=== PATIENT | female | born 1965 | race Caucasian/White ===

== ENCOUNTER 2017-07-19 15:05 | Emergency (ER) | payer SELFPAY ==
[2017-07-19 15:17] VITALS: BP 145/93; PULSE 91; RESP 20; TEMP 36.8; O2SAT 100; BMI 33.5
--- NOTE | 2017-07-19 15:25 | ED_ITS ---
HPI - Extremity Problem <Joyce Quiroz PA-C - Last Filed: 07/19/17 18:09> General Chief complaint: Extremity Problem,Nontraumatic Stated complaint: 'inside of legs are dark and purple' Time Seen by Provider: 07/19/17 15:09 Source: patient and family Mode of arrival: ambulatory Limitations: no limitations History of Present Illness HPI Narrative: This 52-year-old female comes in due to concern about discoloration on her inner thighs today, they look purpleish. She is concerned after looking on the Internet that this could be secondary to PAD. She noticed this coincidentally while showering today. She denies any trauma or new pain in that area but states that she has varicose veins that have been enlarging somewhat lately and are moderately painful, especially at the end of the day, and she states that her legs are feeling ?heavy?. She states that mostly she tolerates the pain and goes about her activities. She denies any new weakness or paresthesia. She can get a little bit of swelling in her feet noted by her but she has not noted this. She denies any new nausea, abdominal pain, chest pain, or dyspnea, fever, other rashes or lesions or known exposures. She states that she has chronic generalized pain but that is unchanged recently. Her notes that she has had a considerable amount of stress and has been quite anxious. Related Data Home Medications Medication Instructions Recorded Confirmed alprazolam 0.5 mg PO PRN 07/19/17 hydrochlorothiazide 25 mg PO DAILY 07/19/17 07/19/17 metoprolol succinate 100 mg PO DAILY 07/19/17 07/19/17 Allergies Allergy/AdvReac Type Severity Reaction Status Date / Time No Known Drug Allergies Allergy Verified 07/19/17 15:21 Review of Systems <Joyce Quiroz PA-C - Last Filed: 07/19/17 18:09> Review of Systems All systems reviewed & are unremarkable except as noted in HPI and below Exam <Joyce Quiroz PA-C - Last Filed: 07/19/17 18:09> Initial Vital Signs Initial Vital Signs: Vital Signs Temperature 98.3 F 07/19/17 15:17 Pulse Rate 91 H 07/19/17 15:17 Respiratory Rate 20 07/19/17 15:17 Blood Pressure 145/93 H 07/19/17 15:17 Pulse Oximetry 100 07/19/17 15:17 GENERAL APPEARANCE: Patient sitting comfortably, in no distress. HEENT: PERRL, EOMI NECK: Supple LUNGS: Clear to auscultation bilaterally. HEART: Rate and rhythm regular, normal S1 and S2, no S3 or S4. ABDOMEN: Soft, nontender, nondistended, bowel sounds present x 4 quadrants EXTREMITIES: Trace pedal edema, no cyanosis, PT and DP pulses 2+ bilaterally, no calf tenderness, numerous small to large varicosities noted bilaterally including upper medial thighs DERMATOLOGIC: No jaundice or exanthem. There are some large varicosities noted on bilateral medial thighs where patient is noting purple skin. Skin appears slightly ashier/darker on the medial thighs but no cyanosis, no eccymoses or petechiae NEUROLOGIC: Alert and oriented with normal speech and coordination <DO Anna Roberts Last Filed: 07/20/17 12:55> Initial Vital Signs Initial Vital Signs: Vital Signs Temperature 98.3 F 07/19/17 15:17 Pulse Rate 91 H 07/19/17 15:17 Respiratory Rate 20 07/19/17 15:17 Blood Pressure 145/93 H 07/19/17 15:17 Pulse Oximetry 100 07/19/17 15:17 Course <KENN Graff Last Filed: 07/19/17 18:09> Orders Ordered: ED Orders 07/19/17 15:44 US periph venous low extrem bi Stat Vital Signs - 8 hr 07/19/17 15:17 07/19/17 16:45 Temperature 98.3 F Pulse Rate 91 H 64 Respiratory Rate 20 18 Blood Pressure 145/93 H 135/100 H Pulse Oximetry 100 100 <DO Anna Roberts Last Filed: 07/20/17 12:55> Orders Ordered: ED Orders 07/19/17 15:44 US periph venous low extrem bi Stat Vital Signs - 8 hr 07/19/17 15:17 07/19/17 16:45 Temperature 98.3 F Pulse Rate 91 H 64 Respiratory Rate 20 18 Blood Pressure 145/93 H 135/100 H Pulse Oximetry 100 100 MDM - Extremity (Nontraumatic) <KENN Graff Last Filed: 07/19/17 18:09> Imaging Data Venous US: Radiologist's impression: View Report History [address] [address] Ultrasound Report Signed Patient: Lucita Rodriguez MR#: [id number] : 1965 Acct:[id number] Age/Sex: 52 / F Date of Service: 07/19/17 Loc: ED Accession Number: [id number] Procedure: US periph venous low extrem bi Ordering Provider: Joyce Quiroz P.A-C PROCEDURE: US PERIPH VENOUS LOW EXTREM BI INDICATIONS: PAIN, EDEMA TECHNIQUE: Real-time imaging, as well as color and pulse Doppler interrogation, were performed of the deep veins of both legs from the inguinal ligament to the popliteal fossa. COMPARISON: None. FINDINGS: The deep veins are normally compressible, and free of intraluminal thrombus. Color and pulse Doppler demonstrate normal phasic intravascular flow. There is normal augmentation response to distal compression maneuver. IMPRESSION: Negative for deep venous thrombosis. Dictated by: Champ Rebolledo M.D. on 07/19/2017 at 15:20 Approved by: Champ Rebolledo M.D. on 07/19/2017 at 15:20 Discharge Plan Departure Patient Disposition: Home, Self-Care Clinical Impression: Symptomatic varicose veins Discharge Date/Time: 07/19/17 16:55 Interventions: ED Discharge Assessment Last Done: 07/19/17 16:45 Instructions: DI for Varicose Veins Activity Restrictions/Additional Instructions: You should return as we talked about if you have any acutely worsening symptoms. You do not have any sign of concerning arterial blockage on exam, and your ultrasound today is negative for any blockage in the deep vein system. However, there symptoms may be caused by worsening of your more superficial varicose veins on both legs, including the heaviness that you described to me. Try wearing compression stockings. Elevate your legs above your heart as much as possible, and limit your salt intake to help with swelling. Follow up with your PCP to see whether this is helping sufficiently or whether you may need a referral to a vascular specialist for further treatment. Prescriptions: No Action metoprolol succinate 100 mg Tablet Extended Release 24 Hr 100 mg PO DAILY RF: 0 hydrochlorothiazide 25 mg PO DAILY RF: 0 alprazolam 0.5 mg PO PRN (Reason: Anxiety) RF: 0 Referrals: Kristin Tobin PA-C [Non-Staff] - <Justino Rodgers DO - Last Filed: 07/20/17 12:55> Cosign ED Attending Cesarature Attestation: I was immediately available in the department for consultation. Documentation has been reviewed. I agree with assessment and plan.
--- NOTE | 2017-07-19 15:44 | DI.US.S_ITS ---
PROCEDURE: US PERIPH VENOUS LOW EXTREM BI INDICATIONS: PAIN, EDEMA TECHNIQUE: Real-time imaging, as well as color and pulse Doppler interrogation, were performed of the deep veins of both legs from the inguinal ligament to the popliteal fossa. COMPARISON: None. FINDINGS: The deep veins are normally compressible, and free of intraluminal thrombus. Color and pulse Doppler demonstrate normal phasic intravascular flow. There is normal augmentation response to distal compression maneuver. IMPRESSION: Negative for deep venous thrombosis. Dictated by: Champ Rebolledo M.D. on 07/19/2017 at 15:20 Approved by: Champ Rebolledo M.D. on 07/19/2017 at 15:20
--- NOTE | 2017-07-19 15:53 | PC.NURSE ---
Pt states 4 years ago, she fell through a rotten deck with her left leg. Ever since, she has been experiencing varicose veins in the left medial thigh down past the knee. Today, she noticed some purple bruising on the medial aspects of her bilateral upper thighs. The skin appears brownish/purple and she states she is having pain in the left thigh with some numbness and radiation.
[2017-07-19 16:45] VITALS: BP 135/100; PULSE 64; RESP 18; O2SAT 100
== END 2017-07-19 16:55 | disposition home or self-care (01) ==
PROVIDERS: Emergency Provider Internal Medicine
DX: I83.899 Varicose veins of unspecified lower extremity with other complications (principal)
CPT/HCPCS: 93970; 99282; 99284

== ENCOUNTER 2018-02-05 15:24 | Emergency (ER) | payer SELFPAY ==
[2018-02-05 15:46] VITALS: BP 142/87; PULSE 96; RESP 20; TEMP 36.4; O2SAT 100; BMI 33.1
--- NOTE | 2018-02-05 18:08 | DI.RAD.S_ITS ---
PROCEDURE: XR CHEST 1V INDICATIONS: chest pain TECHNIQUE: One view of the chest was acquired. COMPARISON: None. FINDINGS: Surgical changes and devices: None. Lungs and pleura: No pleural effusions or pneumothorax. Lungs are clear. Mediastinum: Mediastinal contours appear normal. Heart size is normal. Bones and chest wall: No suspicious bony lesions. Overlying soft tissues appear unremarkable. IMPRESSION: No acute pulmonary process. Dictated by: Quin Foy M.D. on 02/05/2018 at 19:18 Approved by: Quin Foy M.D. on 02/05/2018 at 19:18
[2018-02-05 18:41] LABS: INR 1.1 (0.9-1.3); Prothrombin Time 12.2 SECONDS (10.1-12.7)
[2018-02-05 18:43] LABS: PTT Partial Thromboplastin Tim 32 SECONDS (26.4-36.2)
[2018-02-05 18:45] LABS: Add Manual Diff / Slide Review NO; Basophils Percent Auto 0.7 % (0-2); Eosinophils Percent Auto 0.5 % (2-4); Hematocrit 43.7 % (36-46); Hemoglobin 15.2 g/dL (12.0-16.0); Lymphocytes Percent Auto 25.6 % (25-40); Mean Corpuscular HGB Conc 34.8 % (30-36); Mean Corpuscular Hemoglobin 32.6 PG (26-34); Mean Corpuscular Volume 93.6 fL (80-100); Monocytes Percent Auto 8.5 % (3-14); Neutrophils Absolute Auto 5300 /uL (1500-7000); Neutrophils Percent Auto 64.7 % (50-75); Platelet Count 192 X10^3/uL (150-400); Red Blood Cell Count 4.67 X10^6/uL (4.0-5.2); Red Cell Distribution Width 12.3 % (11.6-14.8); White Blood Cell Count 8.2 X10^3/uL (4.5-11.0)
[2018-02-05 18:52] LABS: Alanine Aminotransferase 50 IU/L (9-52); Albumin Globulin Ratio 1.4 (1.0-2.8); Alkaline Phosphatase 76 U/L (38-126); Aspartate Aminotransferase 47 IU/L (14-36); BUN Creatinine Ratio 23.3 (6-22); Bilirubin Total 1.1 mg/dL (0.2-1.3); Blood Urea Nitrogen 14 mg/dL (7-17); Calcium 9.9 mg/dL (8.4-10.2); Carbon Dioxide 29 mmol/L (22-32); Chloride 96 mmol/L (98-107); Creatine Kinase 172 U/L (30-135); Estimated Glomerular Filt Rate > 60.0 mL/min (>60); Globulin 3.6 g/dL (1.7-4.1); Glucose 106 mg/dL (70-100); HEMOLYSIS < 15 (0-50); Lipase 62 U/L (23-300); Potassium 3.6 mmol/L (3.4-5.1); Sodium 139 mmol/L (137-145); Total Protein 8.6 g/dL (6.3-8.2)
[2018-02-05 19:05] LABS: Troponin I < 0.012 ng/mL (0.01-0.034)
[2018-02-05 19:07] LABS: CKMB % Relative Index 1.1 % (1.5-5.0); Creatine Kinase MB 1.94 ng/mL (<2.37)
--- NOTE | 2018-02-06 02:51 | ED.ANXIETY ---
HPI - Anxiety General Chief Complaint: Anxiety Stated Complaint: cant breathe well, anxiety attack Time Seen by Provider: 02/05/18 19:13 Source: patient Mode of arrival: ambulatory Limitations: no limitations History of Present Illness HPI narrative: 52-year-old female, nonsmoker with history of anxiety presents with what feels like an exacerbation of her anxiety. She takes Xanax once or twice a day and took 1 pill just prior to her arrival. She has multiple significant stressful situations at home including family and work trouble. She denies any desire to hurt herself or anyone else. She is able to eat and drink and base. Her symptoms include the sensation that she cannot breathe and palpitations. She feels much better now that she is here. She denies much in the way ongoing symptoms MD complaint: anxiety Onset (ago): hour(s) Symptoms: dyspnea Severity: mild Quality: constant and improving Place: home History of similar episodes: Yes Provoking factors: emotional stress and work/job stress Relieving factors: medication Exacerbating factors: thinking about event Associated symptoms: shortness of breath and palpitations Related Data Home Medications Medication Instructions Recorded Confirmed alprazolam 0.5 mg PO PRN 07/19/17 hydrochlorothiazide 25 mg PO DAILY 07/19/17 07/19/17 metoprolol succinate 100 mg PO DAILY 07/19/17 07/19/17 Previous Rx's Medication Instructions Recorded alprazolam 1 mg PO BID-TID PRN #14 tab 02/05/18 Allergies Allergy/AdvReac Type Severity Reaction Status Date / Time No Known Drug Allergies Allergy Verified 02/05/18 15:54 Review of Systems Review of Systems All systems reviewed & are unremarkable except as noted in HPI and below Constitutional Denies chills, Denies fever(s), Denies lethargy and Denies weakness Eyes Denies change in vision, Denies eye discharge, Denies irritation and Denies loss of vision ENT Ears, Nose, Mouth, and Throat: Denies change in voice, Denies neck pain and Denies sore throat Cardiovascular Denies chest pain, Denies irregular heart rhythm, Denies lightheadedness, Denies palpitations, Denies dyspnea, Denies dyspnea on exertion and Denies orthopnea Respiratory Denies cough, Denies dyspnea, Denies dyspnea on exertion and Denies wheezing Gastrointestinal Gastrointestinal: Denies abdominal pain, Denies change in bowel habits, Denies diarrhea, Denies nausea and Denies vomiting Genitourinary Denies hematuria, Denies flank pain, Denies urinary incontinence and Denies urinary urgency Musculoskeletal Denies neck pain Integumentary/Breasts Denies pruritus, Denies erythema, Denies rash and Denies wounds Neurologic Denies confusion, Denies loss of vision and Denies weakness Psychiatric Reports anxiety, Denies confusion, Denies depression, Denies homicidal ideation and Denies suicidal ideation Endocrine Denies palpitations Hematologic/Lymphatic Denies easy bruising Allergic/Immunologic Denies wheezing PFSH Medical History Anxiety (Chronic) Chronic generalized pain (Chronic) Mitral valve prolapse (Chronic) Varicose veins of both lower extremities with pain (Chronic) H/O: hysterectomy (Resolved) History of peritonitis (Resolved) Social History Smoking Status: Never smoker alcohol intake: current substance use type: does not use Exam Narrative Exam Narrative: GEN: AOx3 and in mild distress EYES: Pupils are equal, round, and reactive to light and accommodation. Extraoccular muscles are intact bilaterally. There is no subconjunctival hemorrhage or exudate. CHEST: Lungs are clear to auscultation bilaterally and free of wheezes, rales, or rhonchi. Heart rate is regular rhythm, there are no murmurs, clicks, rubs, or gallops. There is no chest wall tenderness. ABD: Abdomen is soft and nontender. There is no guarding or rebound. Bowel sounds are normal in all 4 quadrants. There is no mass or organomegaly. EXT: Full painless ROM of all extremities with no loss of sensation or strength. SKIN: Warm, pink, and dry. No erythema or rash Initial Vital Signs Initial Vital Signs: Vital Signs Temperature 97.5 F L 02/05/18 15:46 Pulse Rate 96 H 02/05/18 15:46 Respiratory Rate 20 02/05/18 15:46 Blood Pressure 142/87 H 02/05/18 15:46 Pulse Oximetry 100 02/05/18 15:46 Course Orders Ordered: ED Orders 02/05/18 18:08 XR chest 1V Stat 02/05/18 18:25 Complete Blood Count AUTO DIFF Stat Comprehensive Metabolic Panel Stat Lipase Stat Partial Thromboplastin Time Stat Prothrombin Time INR Stat Troponin & CK Cardiac Panel Stat MDM - Anxiety Lab Data Result diagrams: 02/05/18 18:25 02/05/18 18:25 Lab Results 02/05/18 02/05/18 02/05/18 Range/Units 18:25 18:25 18:25 WBC 8.2 (4.5-11.0) X10^3/uL RBC 4.67 (4.0-5.2) X10^6/uL Hgb 15.2 (12.0-16.0) g/dL Hct 43.7 (36-46) % MCV 93.6 (80-100) fL MCH 32.6 (26-34) PG MCHC 34.8 (30-36) % RDW 12.3 (11.6-14.8) % Plt Count 192 (150-400) X10^3/uL Neut % (Auto) 64.7 (50-75) % Lymph % (Auto) 25.6 (25-40) % [place] % (Auto) 8.5 (3-14) % Eos % (Auto) 0.5 L (2-4) % Baso % (Auto) 0.7 (0-2) % Neut # (Auto) 5300 (2483-1061) /uL PT 12.2 (10.1-12.7) SECONDS INR 1.1 (0.9-1.3) APTT 32 (26.4-36.2) SECONDS Sodium 139 (137-145) mmol/L Potassium 3.6 (3.4-5.1) mmol/L Chloride 96 L (98-107) mmol/L Carbon Dioxide 29 (22-32) mmol/L BUN 14 (7-17) mg/dL Creatinine 0.60 (0.52-1.04) mg/dL Estimated GFR > 60.0 (>60) mL/min BUN/Creatinine Ratio 23.3 H (6-22) Glucose 106 H (70-100) mg/dL Calcium 9.9 (8.4-10.2) mg/dL Total Bilirubin 1.1 (0.2-1.3) mg/dL AST 47 H (14-36) IU/L ALT 50 (9-52) IU/L Alkaline Phosphatase 76 (38-126) U/L Total Creatine Kinase 172 H (30-135) U/L CK-MB (CK-2) 1.94 (<2.37) ng/mL CK-MB (CK-2) Rel Index 1.1 L (1.5-5.0) % Troponin I < 0.012 (0.01-0.034) ng/mL Total Protein 8.6 H (6.3-8.2) g/dL Albumin 5.0 (3.5-5.0) g/dL Globulin 3.6 (1.7-4.1) g/dL Albumin/Globulin Ratio 1.4 (1.0-2.8) Lipase 62 (23-300) U/L Discharge Plan Departure Patient Disposition: Home Clinical Impression: Anxiety Discharge Date/Time: 02/05/18 20:07 Interventions: ED Discharge Assessment Last Done: 02/05/18 20:05 Instructions: DI for Anxiety -- Adult Activity Restrictions/Additional Instructions: *You have been diagnosed with [ acute anxiety reaction ] *What to do: *Take medications as directed *Follow up with your primary care provider in 2-3 days, call for an appointment. Let them know you were seen in the Emergency Department and that we ask that you be seen in follow up *Return to ER if you should have any new, worsening or concerning symptoms Prescriptions: New alprazolam 1 mg tablet 1 mg PO BID-TID PRN (Reason: anxiety) Qty: 14 RF: 0 No Action metoprolol succinate 100 mg Tablet Extended Release 24 Hr 100 mg PO DAILY RF: 0 hydrochlorothiazide 25 mg PO DAILY RF: 0 alprazolam 0.5 mg PO PRN (Reason: Anxiety) RF: 0
== END 2018-02-05 20:07 | disposition home or self-care (01) ==
PROVIDERS: Emergency Provider Emergency Medicine
DX: F41.9 Anxiety disorder, unspecified (principal)
CPT/HCPCS: 36415; 71045; 80053; 82550; 82553; 83690; 84484; 85025; 85610; 85730; 93005; 99282; 99285

== ENCOUNTER → 2018-07-14 07:35 | Outpatient (CLI) | payer OTHER, SELFPAY ==
[2018-07-14 09:11] LABS: Hemoglobin A1C% w Est Avg Glu 5.4 % (4.0-6.0)
[2018-07-14 09:41] LABS: Alanine Aminotransferase 52 IU/L (9-52); Albumin 4.6 g/dL (3.5-5.0); Albumin Globulin Ratio 1.4 (1.0-2.8); Alkaline Phosphatase 83 U/L (38-126); Aspartate Aminotransferase 33 IU/L (14-36); BUN Creatinine Ratio 23.3 (6-22); Bilirubin Total 0.9 mg/dL (0.2-1.3); Blood Urea Nitrogen 14 mg/dL (7-17); Calcium 9.5 mg/dL (8.4-10.2); Carbon Dioxide 28 mmol/L (22-32); Chloride 100 mmol/L (98-107); Cholesterol 301 mg/dL (140-199); Estimated Glomerular Filt Rate > 60.0 mL/min (>60); Globulin 3.2 g/dL (1.7-4.1); Glucose 131 mg/dL (70-100); HDL Cholesterol 60 mg/dL (40-60); HEMOLYSIS < 15 (0-50); LDL Cholesterol Calculated 215 mg/dL (<100); Magnesium 1.9 mg/dL (1.6-2.3); Phosphorous 4.5 mg/dL (2.5-4.5); Potassium 4.1 mmol/L (3.4-5.1); Sodium 138 mmol/L (137-145); Total Protein 7.8 g/dL (6.3-8.2); Triglycerides 128 mg/dL (35-150)
[2018-07-14 09:54] LABS: Free T4, Direct Thyroxine 0.97 ng/dL (0.78-2.19)
[2018-07-14 10:08] LABS: Thyroid Stimulating Hormone 2.51 uIU/mL (0.47-4.68)
== END ==
PROVIDERS: PCP Nurse Practitioner Family; Visit Provider Nurse Practitioner Family
DX: I10 Essential (primary) hypertension (principal); R63.5 Abnormal weight gain
CPT/HCPCS: 36415; 80053; 80061; 83036; 83735; 84100; 84439; 84443

== ENCOUNTER 2018-09-11 08:14 | Emergency (ER) | payer OTHER, SELFPAY ==
[2018-09-11 08:23] VITALS: BP 172/105; PULSE 82; RESP 19; TEMP 36.4; O2SAT 100; BMI 34.9
--- NOTE | 2018-09-11 08:25 | DI.RAD.S_ITS ---
PROCEDURE: XR CHEST 1V INDICATIONS: short of breath TECHNIQUE: One view of the chest was acquired. COMPARISON: [facility], CR, XR CHEST 1V, 02/05/2018, 18:26. FINDINGS: Surgical changes and devices: None. Lungs and pleura: Lungs are clear. No pleural effusions or pneumothorax. Mediastinum: Mediastinal contours appear normal. Heart size is normal. Bones and chest wall: No suspicious bony lesions. Overlying soft tissues appear unremarkable. IMPRESSION: Normal for age, source of current shortness of breath symptoms is not seen. Dictated by: Tawanda Cardona M.D. on 09/11/2018 at 9:06 Approved by: Tawanda Cardona M.D. on 09/11/2018 at 9:07
--- NOTE | 2018-09-11 08:37 | ED_ITS ---
HPI - Anxiety General Chief Complaint: Anxiety Stated Complaint: dificulty breathing Time Seen by Provider: 09/11/18 08:24 Source: patient Mode of arrival: ambulatory Limitations: no limitations History of Present Illness HPI narrative: Patient is a 53-year-old female who presents with difficulty breathing and chest pain. She has a history of anxiety she was previously taking Xanax every day her primary switched her to Effexor about 5 weeks ago. She says it is not helping she has been having increased panic attack last night she woke up and had 1 around to a.m.. She feels like her tongue is numb and she has difficulty breathing. This has never happened to her before. She says she has been trying her deep breathing but it does not seem to be helping. MD complaint: anxiety Quality: constant Place: home History of similar episodes: Yes Provoking factors: none known Relieving factors: nothing Related Data Home Medications Medication Instructions Recorded Confirmed alprazolam 0.5 mg PO PRN 07/19/17 hydrochlorothiazide 25 mg PO DAILY 07/19/17 07/19/17 metoprolol succinate 100 mg PO DAILY 07/19/17 07/19/17 Previous Rx's Medication Instructions Recorded alprazolam 1 mg PO BID-TID PRN #14 tab 02/05/18 Allergies Allergy/AdvReac Type Severity Reaction Status Date / Time No Known Drug Allergies Allergy Verified 09/11/18 08:22 Review of Systems Review of Systems ROS Unobtainable: All systems reviewed & are unremarkable except as noted in HPI and below Constitutional Denies chills, Denies fever(s), Denies lethargy and Denies weakness Eyes Denies change in vision, Denies eye discharge, Denies irritation and Denies loss of vision ENT Ears, Nose, Mouth, and Throat: Denies change in voice, Denies neck pain and Denies sore throat Cardiovascular Reports as per HPI, Reports chest pain and Reports dyspnea Respiratory Reports dyspnea Gastrointestinal Gastrointestinal: Denies abdominal pain, Denies change in bowel habits, Denies diarrhea, Denies nausea and Denies vomiting Genitourinary Denies hematuria, Denies flank pain, Denies urinary incontinence and Denies urinary urgency Musculoskeletal Denies neck pain Integumentary/Breasts Denies pruritus, Denies erythema, Denies rash and Denies wounds Neurologic Denies loss of vision and Denies weakness [facility] Medical History Anxiety (Chronic) Chronic generalized pain (Chronic) Mitral valve prolapse (Chronic) Varicose veins of both lower extremities with pain (Chronic) H/O: hysterectomy (Resolved) History of peritonitis (Resolved) Social History (Updated 07/19/17 @ 15:50 by Joyce Quiroz PA-C) Smoking Status: Never smoker alcohol intake: current substance use type: does not use Social History Smoking Status: Never smoker alcohol intake: current substance use type: does not use Exam Initial Vital Signs Initial Vital Signs: Vital Signs Temperature 97.6 F 09/11/18 08:23 Pulse Rate 82 09/11/18 08:23 Respiratory Rate 19 09/11/18 08:23 Blood Pressure 172/105 H 09/11/18 08:23 Pulse Oximetry 100 09/11/18 08:23 GENERAL: Well-appearing, well-nourished and in no acute distress. HEENT: Head atraumatic,EOMI, pupils reactive, face symmetric, moist mucous membranes CARDIOVASCULAR: Regular rate and rhythm without murmurs, rubs or gallops. RESPIRATORY: Breath sounds equal bilaterally, no wheezes rales or rhonchi. ABDOMEN: Soft, nontender. Normoactive bowel sounds all 4 quadrants. No guarding or rebound. EXTREMITIES: Normal range of motion, no clubbing or edema. Neurovascularly intact NEUROLOGICAL: Alert and oriented x4.Normal gait and speech. Cranial nerves II through XII grossly intact. SKIN: Warm, dry, no laceration, no petechiae, no rashes or lesions. Scores HEART Score Heart Score history: Slightly Suspicious Heart Score EKG: Normal Heart Score Age: 45-64 years old Heart Score risk factors: 1-2 risk factors Heart Score troponin: < or = to normal limit Heart Score Total: 2 Course Orders Ordered: ED Orders 09/11/18 08:25 XR chest 1V Stat EKG-12 Lead Stat 09/11/18 08:45 Complete Blood Count AUTO DIFF Stat Comprehensive Metabolic Panel Stat Lipase Stat Troponin & CK Cardiac Panel Stat Discontinued Medications Lorazepam (Ativan) 0.5 mg IV NOW ONE Stop: 09/11/18 08:26 Last Admin: 09/11/18 08:43 Dose: 0.5 mg Vital Signs - 8 hr 09/11/18 08:23 09/11/18 09:13 09/11/18 10:00 Temperature 97.6 F 98.4 F Pulse Rate 82 78 82 Respiratory Rate 19 12 16 Blood Pressure 172/105 H 161/91 H Blood Pressure [Right Arm] 151/88 H Pulse Oximetry 100 100 100 MDM - Anxiety Lab Data Attestation: I reviewed the patient's lab results. Result diagrams: 09/11/18 08:45 09/11/18 08:45 Lab Results 09/11/18 09/11/18 Range/Units 08:45 08:45 WBC 4.2 L (4.5-11.0) X10^3/uL RBC 4.82 (4.0-5.2) X10^6/uL Hgb 15.9 (12.0-16.0) g/dL Hct 45.7 (36-46) % MCV 94.9 (80-100) fL MCH 32.9 (26-34) PG MCHC 34.7 (30-36) % RDW 12.8 (11.6-14.8) % Plt Count 173 (150-400) X10^3/uL Neut % (Auto) 68.0 (50-75) % Lymph % (Auto) 21.6 L (25-40) % [place] % (Auto) 9.4 (3-14) % Eos % (Auto) 0.2 L (2-4) % Baso % (Auto) 0.8 (0-2) % Neut # (Auto) 2900 (4649-7839) /uL Lymph # (Auto) 900 L (7506-3016) /uL [place] # (Auto) 400 (0-900) /uL Eos # (Auto) 0 (0-450) /uL Baso # (Auto) 0 (0-100) /uL Sodium 141 (137-145) mmol/L Potassium 3.8 (3.4-5.1) mmol/L Chloride 96 L (98-107) mmol/L Carbon Dioxide 32 (22-32) mmol/L BUN 16 (7-17) mg/dL Creatinine 0.50 L (0.52-1.04) mg/dL Estimated GFR > 60.0 (>60) mL/min BUN/Creatinine Ratio 32.0 H (6-22) Glucose 150 H (70-100) mg/dL Calcium 9.9 (8.4-10.2) mg/dL Total Bilirubin 1.1 (0.2-1.3) mg/dL AST 95 H (14-36) IU/L ALT 117 H (9-52) IU/L Alkaline Phosphatase 87 (38-126) U/L Total Creatine Kinase 308 H (30-135) U/L CK-MB (CK-2) 2.76 H (<2.37) ng/mL CK-MB (CK-2) Rel Index 0.9 L (1.5-5.0) % Troponin I < 0.012 (0.01-0.034) ng/mL Total Protein 8.2 (6.3-8.2) g/dL Albumin 5.0 (3.5-5.0) g/dL Globulin 3.2 (1.7-4.1) g/dL Albumin/Globulin Ratio 1.6 (1.0-2.8) Lipase 79 (23-300) U/L Imaging Data Chest x-ray: Radiologist's impression: PROCEDURE: XR CHEST 1V INDICATIONS: short of breath TECHNIQUE: One view of the chest was acquired. COMPARISON: [facility], , XR CHEST 1V, 02/05/2018, 18:26. FINDINGS: Surgical changes and devices: None. Lungs and pleura: Lungs are clear. No pleural effusions or pneumothorax. Mediastinum: Mediastinal contours appear normal. Heart size is normal. Bones and chest wall: No suspicious bony lesions. Overlying soft tissues appear unremarkable. IMPRESSION: Normal for age, source of current shortness of breath symptoms is not seen. Dictated by: Tawanda Cardona M.D. on 09/11/2018 at 9:06 ECG Data Attestation: I personally reviewed and interpreted this ECG as follows: Prior ECG tracings: available for review Interpretation: Sinus rhythm rate [address] changes no T-wave inversions similar to previous EKGs MDM Narrative Medical decision making narrative: Patient overall is feeling much better after Ativan. It is likely that she has had an anxiety reaction today. I recommend she talk with her PCP regards to changing her residential anxiety medication. I explained the annex is not a long-term anxiety medication and only used for emergencies. She was only given 1 dose of Ativan in the emergency department and not a prescription. He understands this overall feels ready and able to go home Discharge Plan Departure Patient Disposition: Home Clinical Impression: Acute anxiety Discharge Date/Time: 09/11/18 09:59 Interventions: ED Discharge Assessment Last Done: 09/11/18 10:00 Instructions: DI for Anxiety -- Adult Activity Restrictions/Additional Instructions: *You have been diagnosed with anxiety *What to do: Today you experience an anxiety attack. Blood work x-ray and EKG were all reassuring. I recommend that she talk with her PCP regards to changing her Effexor to a different medication. *Continue to take medications as directed *Follow up with your primary care provider in 2-3 days *Return to ER if you should have increased chest pain shortness of breath worsening anxiety or any new, worsening or concerning symptoms Prescriptions: No Action metoprolol succinate 100 mg Tablet Extended Release 24 Hr 100 mg PO DAILY RF: 0 hydrochlorothiazide 25 mg PO DAILY RF: 0 alprazolam 0.5 mg PO PRN (Reason: Anxiety) RF: 0 alprazolam 1 mg tablet 1 mg PO BID-TID PRN (Reason: anxiety) Qty: 14 RF: 0 Referrals: Don Pang ARNP [Primary Care Provider] -
[2018-09-11] MEDS: LORazepam 2 MG/ML INJ 0.5 MG IV (08:43)
[2018-09-11 09:01] LABS: Add Manual Diff / Slide Review NO; Basophils Absolute Auto 0 /uL (0-100); Basophils Percent Auto 0.8 % (0-2); Eosinophils Absolute Auto 0 /uL (0-450); Eosinophils Percent Auto 0.2 % (2-4); Hematocrit 45.7 % (36-46); Hemoglobin 15.9 g/dL (12.0-16.0); Lymphocytes Absolute Auto 900 /uL (1100-4500); Lymphocytes Percent Auto 21.6 % (25-40); Mean Corpuscular HGB Conc 34.7 % (30-36); Mean Corpuscular Hemoglobin 32.9 PG (26-34); Mean Corpuscular Volume 94.9 fL (80-100); Monocytes Absolute Auto 400 /uL (0-900); Monocytes Percent Auto 9.4 % (3-14); Neutrophils Absolute Auto 2900 /uL (1500-7000); Platelet Count 173 X10^3/uL (150-400); Red Blood Cell Count 4.82 X10^6/uL (4.0-5.2); Red Cell Distribution Width 12.8 % (11.6-14.8); White Blood Cell Count 4.2 X10^3/uL (4.5-11.0)
[2018-09-11 09:13] VITALS: BP 151/88; PULSE 78; RESP 12; O2SAT 100
[2018-09-11 09:13] LABS: Alanine Aminotransferase 117 IU/L (9-52); Albumin Globulin Ratio 1.6 (1.0-2.8); Alkaline Phosphatase 87 U/L (38-126); Aspartate Aminotransferase 95 IU/L (14-36); Bilirubin Total 1.1 mg/dL (0.2-1.3); Blood Urea Nitrogen 16 mg/dL (7-17); Calcium 9.9 mg/dL (8.4-10.2); Carbon Dioxide 32 mmol/L (22-32); Chloride 96 mmol/L (98-107); Creatine Kinase 308 U/L (30-135); Estimated Glomerular Filt Rate > 60.0 mL/min (>60); Globulin 3.2 g/dL (1.7-4.1); Glucose 150 mg/dL (70-100); HEMOLYSIS < 15 (0-50); Lipase 79 U/L (23-300); Potassium 3.8 mmol/L (3.4-5.1); Sodium 141 mmol/L (137-145); Total Protein 8.2 g/dL (6.3-8.2)
[2018-09-11 09:25] LABS: Troponin I < 0.012 ng/mL (0.01-0.034)
[2018-09-11 09:28] LABS: CKMB % Relative Index 0.9 % (1.5-5.0); Creatine Kinase MB 2.76 ng/mL (<2.37)
[2018-09-11 10:00] VITALS: BP 161/91; PULSE 82; RESP 16; TEMP 36.9; O2SAT 100
== END 2018-09-11 09:59 | disposition home or self-care (01) ==
PROVIDERS: Emergency Provider Emergency Medicine; PCP Nurse Practitioner Family
DX: F41.9 Anxiety disorder, unspecified (principal); R06.00 Dyspnea, unspecified; R07.9 Chest pain, unspecified
CPT/HCPCS: 36591; 71045; 80053; 82550; 82553; 83690; 84484; 85025; 93005; 96374; 99283; 99285; J2060

== ENCOUNTER 2020-08-28 12:45 | Emergency (ER) | payer OTHER, SELFPAY ==
[2020-08-28 12:55] VITALS: BP 156/96; PULSE 94; RESP 16; TEMP 36.3; O2SAT 97; BMI 34.2
--- NOTE | 2020-08-28 12:55 | DI.RAD.S_ITS ---
PROCEDURE: XR CHEST 1V INDICATIONS: Eval for pneumonia TECHNIQUE: One view of the chest was acquired. COMPARISON: [facility], CR, XR CHEST 1V, 09/11/2018, 8:35. FINDINGS: Surgical changes and devices: None. Lungs and pleura: Lungs are clear. No pleural effusions or pneumothorax. Mediastinum: Mediastinal contours appear normal. Heart size is normal. Bones and chest wall: No suspicious bony lesions. Overlying soft tissues appear unremarkable. IMPRESSION: No acute cardiopulmonary findings Dictated by: Eduardo Starkey M.D. on 08/28/2020 at 13:46 Approved by: Eduardo Starkey M.D. on 08/28/2020 at 13:48
[2020-08-28 13:37] LABS: COVID19 -Nasal RAPID Negative (Negative)
--- NOTE | 2020-08-28 13:53 | ED_ITS ---
HPI - General Adult General Chief complaint: Upper Respiratory Symptoms Stated complaint: Chest pain, sore throat, clogged ears Time Seen by Provider: 08/28/20 12:54 Source: patient Mode of arrival: Ambulatory History of Present Illness HPI narrative: Patient is a 55-year-old female. She has not received the COVID- 19 vaccine in potentially has had exposures over the past couple days. States that last evening she slept outside. Today she wakes up feeling sore throat and clogged ears and chest congestion. No fevers. But generally just does not feel well Related Data Home Medications Medication Instructions Recorded Confirmed alprazolam 0.5 mg PO PRN 07/19/17 hydrochlorothiazide 25 mg PO DAILY 07/19/17 07/19/17 metoprolol succinate 100 mg 100 mg PO DAILY 07/19/17 07/19/17 tablet,extended release 24 hr Previous Rx's Medication Instructions Recorded alprazolam 1 mg tablet 1 mg PO BID-TID PRN #14 tab 02/05/18 Allergies Allergy/AdvReac Type Severity Reaction Status Date / Time No Known Drug Allergies Allergy Verified 08/28/20 12:57 Review of Systems Constitutional Constitutional: Reports chills, Reports fatigue, Reports malaise and Reports poor appetite ENT Comments: Ear fullness Cardiovascular Comments: No chest pain Respiratory Comments: Chest congestion Musculoskeletal Comments: Body aches Integumentary/Breasts Comments: No rash Endocrine Endocrine: Reports fatigue Hematologic/Lymphatic On Anticoagulants: No Patient History Medical History Anxiety Chronic generalized pain History of peritonitis Mitral valve prolapse Varicose veins of both lower extremities with pain Surgical History H/O: hysterectomy Social History Smoking Status: Never smoker alcohol intake: current substance use type: does not use Smoking Status: Never smoker alcohol intake frequency: a few times a week Substance Use Type: does not use Exam Initial Vital Signs Initial Vital Signs: Vital Signs Temperature 97.3 F L 08/28/20 12:55 Pulse Rate 94 H 08/28/20 12:55 Respiratory Rate 16 08/28/20 12:55 Blood Pressure 156/96 H 08/28/20 12:55 Pulse Oximetry 97 08/28/20 12:55 Const General: cooperative and comfortable HENMT Head: normal to inspection and normocephalic Eyes General: appearance normal, both eyes and all related structures Resp Effort & Inspection: normal respiratory effort Auscultation: clear to auscultation bilaterally Cardio Rate: regular rate Rhythm: regular rhythm Skin General: no rashes or lesions noted Neuro General: patient alert, patient awake, patient oriented x3 and moves all extremities Extrem General: normal to inspection and capillary refill normal Psych Appearance: grossly normal and well kempt Course Orders Ordered: ED Orders 08/28/20 12:55 XR chest 1V Stat 08/28/20 13:00 COVID19 -Nasal swab/Pre-Proc Stat Vital Signs Vital signs: Vital Signs - 8 hr 08/28/20 12:55 08/28/20 14:06 Temperature 97.3 F L Pulse Rate 94 H 68 Respiratory Rate 16 12 Blood Pressure 156/96 H 152/86 H Pulse Oximetry 97 96 Medical Decision Making Lab Data Labs: Lab Results 08/28/20 Range/Units 13:00 SARS-CoV-2 (PCR) Negative (Negative) Imaging Data Chest x-ray: Attestation: I personally reviewed and interpreted this imaging study as follows: My Impression: No consolidation, no acute changes MDM Narrative Medical decision making narrative: Patient clinically does not have pneumonia. Is afebrile. Not coughing. Has a clear lung exam. Will hold on any antibiotics for now. Her COVID test was negative. We did discuss that since she had a potential exposure she does need to quarantine herself for the next 14 days despite her negative COVID test today. Will hold on further workup for now. She was given return precautions. She expressed understanding agreement. Discharge Plan Departure Patient Disposition: Home Clinical Impression: Fatigue, Chest congestion Instructions: COVID-19: Testing and Tracing Activity Restrictions/Additional Instructions: Since you are unvaccinated the current recommendations after a possible exposure are to quarantine yourself for the next 14 days. You can take Tylenol for any fevers or body aches. Contact your primary provider for follow-up. Return to the emergency department for any new or worsening symptoms Prescriptions: No Action metoprolol succinate 100 mg Tablet Extended Release 24 Hr 100 mg PO DAILY RF: 0 hydrochlorothiazide 25 mg PO DAILY RF: 0 alprazolam 0.5 mg PO PRN (Reason: Anxiety) RF: 0 alprazolam 1 mg tablet 1 mg PO BID-TID PRN (Reason: anxiety) Qty: 14 RF: 0 Referrals: Don Pang ARNP [Primary Care Provider] -
[2020-08-28 14:06] VITALS: BP 152/86; PULSE 68; RESP 12; O2SAT 96
== END 2020-08-28 14:07 | disposition home or self-care (01) ==
PROVIDERS: Emergency Provider Emergency Medicine; PCP Nurse Practitioner Family
DX: R53.83 Other fatigue (principal); J02.9 Acute pharyngitis, unspecified; Z20.822 Contact with and (suspected) exposure to COVID-19
CPT/HCPCS: 71045; 87635; 99281; 99283; C9803

== ENCOUNTER → 2022-04-23 10:47 | Outpatient (CLI) | payer OTHER, MEDICAID, SELFPAY ==
[2022-04-23 11:39] LABS: Add Manual Diff / Slide Review NO; Basophils Absolute Auto 0 /uL (0-100); Basophils Percent Auto 0.8 % (0-2); Eosinophils Absolute Auto 100 /uL (0-450); Hematocrit 41.8 % (36-46); Hemoglobin 14.6 g/dL (12.0-16.0); Lymphocytes Absolute Auto 1100 /uL (1100-4500); Lymphocytes Percent Auto 23.5 % (25-40); Mean Corpuscular HGB Conc 34.9 % (30-36); Mean Corpuscular Hemoglobin 33.5 PG (26-34); Monocytes Absolute Auto 500 /uL (0-900); Neutrophils Absolute Auto 3100 /uL (1500-7000); Neutrophils Percent Auto 62.7 % (50-75); Platelet Count 149 X10^3/uL (150-400); Red Blood Cell Count 4.36 X10^6/uL (4.0-5.2); Red Cell Distribution Width 12.9 % (11.6-14.8); White Blood Cell Count 4.9 X10^3/uL (4.5-11.0)
[2022-04-23 11:57] LABS: Alanine Aminotransferase 94 IU/L (<35); Albumin 4.9 g/dL (3.5-5.0); Albumin Globulin Ratio 1.5 (1.0-2.8); Alkaline Phosphatase 84 U/L (38-126); Aspartate Aminotransferase 133 IU/L (14-36); BUN Creatinine Ratio 18.9 (6-22); Blood Urea Nitrogen 10 mg/dL (7-17); Carbon Dioxide 33 mmol/L (22-32); Chloride 95 mmol/L (98-107); Cholesterol 309 mg/dL (140-199); Estimated Glomerular Filt Rate > 60 mL/min (>60); Globulin 3.2 g/dL (1.7-4.1); Glucose 125 mg/dL (70-100); HDL Cholesterol 70 mg/dL (40-60); HEMOLYSIS < 15 (0-50); LDL Cholesterol Calculated 200 mg/dL (<100); Potassium 3.3 mmol/L (3.4-5.1); Sodium 137 mmol/L (137-145); Total Protein 8.1 g/dL (6.3-8.2); Triglycerides 194 mg/dL (35-150)
[2022-04-23 12:02] LABS: Hemoglobin A1C% w Est Avg Glu 5.8 % (4.0-6.0)
[2022-04-23 12:14] LABS: Free T3, Triiodothyronine Free 3.75 pg/mL (2.77-5.27); Free T4, Direct Thyroxine 1.27 ng/dL (0.78-2.19)
[2022-04-23 12:28] LABS: Thyroid Stimulating Hormone 1.37 uIU/mL (0.47-4.68)
[2022-04-23 18:16] LABS: HIV 1 & 2 Ab/Ag 4th Gen Combo NEGATIVE (NEGATIVE); Hep C Virus Ab w/Reflex Quant NEGATIVE s/c (NEGATIVE)
== END ==
PROVIDERS: PCP Nurse Practitioner; Referring Provider Nurse Practitioner; Visit Provider Nurse Practitioner
DX: Z00.00 Encounter for general adult medical examination without abnormal findings (principal); Z11.59 Encounter for screening for other viral diseases; Z11.4 Encounter for screening for human immunodeficiency virus [HIV]; R73.01 Impaired fasting glucose
CPT/HCPCS: 36415; 80053; 80061; 83036; 84439; 84443; 84481; 85025; 86803; 87389

== ENCOUNTER → 2022-05-23 10:01 | Outpatient (CLI) | payer OTHER, MEDICAID, SELFPAY ==
--- NOTE | 2022-05-23 10:02 | DI.US.S_ITS ---
PROCEDURE: US ABDOMEN LIMITED INDICATIONS: right upper quadrant abd pain and elevated LFTs TECHNIQUE: Real-time focused scanning was performed of the abdomen, with image documentation. COMPARISON: None. FINDINGS: Enlarged liver with increased echogenicity. Main portal vein is patent. Liver measures 19 cm. No stones or sonographic Elam sign. Nondilated biliary tree. Visualized pancreas at the head is within normal limits. IMPRESSION: Enlarged liver with increased echogenicity, suspicious for steatohepatitis in the setting of elevated LFTs. Normal biliary system and gallbladder by ultrasound. Dictated by: Jt Pelletier M.D. on 05/23/2022 at 11:51 Approved by: Jt Pelletier M.D. on 05/23/2022 at 11:52
== END ==
PROVIDERS: PCP Nurse Practitioner; Referring Provider Nurse Practitioner; Visit Provider Nurse Practitioner
DX: R10.11 Right upper quadrant pain (principal); R16.0 Hepatomegaly, not elsewhere classified; R79.89 Other specified abnormal findings of blood chemistry
CPT/HCPCS: 76705

== ENCOUNTER → 2022-07-19 14:32 | Outpatient (CLI) | payer OTHER, MEDICAID, SELFPAY ==
--- NOTE | 2022-07-19 14:33 | DI.MG.S_ITS ---
BILATERAL DIGITAL SCREENING MAMMOGRAM 3D/2D WITH CAD: 07/19/2022 CLINICAL: Routine screening. Comparison is made to exams dated: 01/01/2018 mammogram, 06/12/2012 mammogram, and 08/31/2009 mammogram - [facility]. Both breasts are heterogeneously dense, which may obscure small masses (category c / 51-75% glandular tissue). Current study was also evaluated with a Computer Aided Detection (CAD) system. No significant masses, calcifications, or other findings are seen in either breast. There has been no significant interval change. IMPRESSION: NEGATIVE There is no mammographic evidence of malignancy. A 1 year screening mammogram is recommended. Based on the Tyrer Cuzick model (a risk assessment model) the patient's lifetime risk is 10.3% and her 10 year risk is 3.1%. According to the ACR, ACS, and NCCN guidelines, an annual breast MRI exam along with mammogram is recommended if the patient's lifetime risk is 20% or greater. This exam was interpreted at Station ID: [id number]. NOTE: For mammograms, a report in lay terms will be sent to the patient. Approximately 15% of breast malignancies will not be visualized mammographically. In the management of a palpable breast mass, a negative mammogram must not discourage biopsy of a clinically suspicious lesion. Electronically Signed By: Manny mckeon/lester:07/20/2022 18:05:13 letter sent: Normal Exam ACR BI-RADS Category 1: Negative [id number]
== END ==
PROVIDERS: PCP Nurse Practitioner; Referring Provider Nurse Practitioner; Visit Provider Nurse Practitioner
DX: Z12.31 Encounter for screening mammogram for malignant neoplasm of breast (principal)
CPT/HCPCS: 77063; 77067

== ENCOUNTER → 2022-08-30 12:06 | Outpatient (CLI) | payer OTHER, MEDICAID, SELFPAY ==
--- NOTE | 2022-08-30 12:07 | DI.US.S_ITS ---
PROCEDURE: US ABDOMEN LIMITED INDICATIONS: umbilical hernia TECHNIQUE: Real-time focused scanning was performed of the abdomen, with image documentation. COMPARISON: [facility], US, US ABDOMEN LIMITED, 05/23/2022, 10:07. FINDINGS: Scanning along the midline demonstrates no hernia. The liver demonstrates enlarged size. The liver demonstrates generalized moderately increased echogenicity. This decreases ultrasound sensitivity for detection of hepatic masses. Focal fatty sparing can be seen adjacent to the gallbladder. No findings of gallstones or sludge are seen. The gallbladder wall is not thickened, measuring 3 mm or less. No specific pericholecystic fluid is seen. The sonographic Elam sign is negative. There is no biliary dilatation, the common bile duct measures 3 mm. No significant pancreatic abnormality is seen on these images. IMPRESSION: No anterior abdominal wall hernia can be seen. Enlarged, fatty liver. Dictated by: Champ Rebolledo M.D. on 08/30/2022 at 13:43 Approved by: Champ Rebolledo M.D. on 08/30/2022 at 13:45
== END ==
PROVIDERS: PCP Nurse Practitioner; Referring Provider Nurse Practitioner; Visit Provider Nurse Practitioner
DX: K42.9 Umbilical hernia without obstruction or gangrene (principal); K76.0 Fatty (change of) liver, not elsewhere classified
CPT/HCPCS: 76705

== ENCOUNTER → 2022-12-31 12:44 | Outpatient (CLI) | payer OTHER, MEDICAID, SELFPAY ==
--- NOTE | 2022-12-31 | DI.MRI.S_ITS ---
PROCEDURE: MR ANKLE RT WO CON INDICATIONS: CHRONIC RIGHT ANKLE PAIN TECHNIQUE: Noncontrast sagittal T1 spin echo and T2 fast spin echo with fat saturation, axial proton density fast spin echo and T2 fast spin echo with fat saturation, coronal T1 spin echo and T2 fast spin echo with fat saturation through the ankle/hindfoot. COMPARISON: [facility], CR, XR ANKLE 3 VIEWS WEIGHT BEARING RIGHT, 12/18/2022, 13:51. FINDINGS: Image quality: Excellent. Bones and joints: No bone marrow contusions or fractures. Mild midfoot and hindfoot joint osteoarthritic changes are seen with joint space narrowing, subchondral sclerosis and marginal osteophyte formation. No hindfoot coalitions. No osteochondral injuries of the talar dome. No pathologic joint effusions. Small plantar calcaneal enthesophyte is seen. Medial structures: The posterior tibialis tendon is thickened at the level of distal talus and talonavicular joint with small amount of fluid distending tendon sheath. The flexor digitorum longus, and flexor hallucis longus tendons are intact. The posterior tibial neurovascular bundle appears normal within the tarsal tunnel, without extrinsic mass effect. The deltoid ligament and spring ligament are mildly thickened. Lateral structures: The anterior talofibular, calcaneofibular, and posterior talofibular ligaments appear thickened. More superiorly, the anterior tibial fibular ligament is thickened with intrasubstance T2 hyperintense signal. The posterior tibial fibular ligament is intact. The tibiofibular syndesmosis is normal in width at 2 mm or less. The peroneus longus and brevis tendons are mildly thickened with small amount of fluid distending tendon sheath at the level of mid to distal calcaneus and calcaneocuboid joint. Adjacent bony peroneal tubercle and retrotrochlear prominence are normal in size. The sinus tarsi demonstrates normal fatty signal, without edema, fibrosis, or cyst formation. Visualized sinus tarsi components (cervical ligament, interosseous talocalcaneal ligament, roots of the inferior extensor retinaculum) appear normal. The calcaneonavicular and calcaneocuboid components of the bifurcate ligament appear intact. The dorsal calcaneocuboid ligament appears intact. Anterior structures: The tibialis anterior, extensor hallucis longus, and extensor digitorum longus tendons appear intact. The dorsal talonavicular ligament appears intact. Posterior and plantar structures: Achilles tendon is intact. Medial and lateral bands of the plantar fascia are of normal thickness. No abductor digiti quinti muscle atrophy to suggest Hernandez neuropathy. IMPRESSION: 1. No marrow edema. No fracture or dislocation. Mild midfoot and hindfoot joint osteoarthritis. Small plantar calcaneal enthesophyte. 2. Low to moderate grade tenosynovitis involving posterior tibialis tendon at the level of distal talus and talonavicular joint. 3. Low-grade tenosynovitis involving peroneus longus and brevis tendons at the level of mid to distal calcaneus and calcaneocuboid joint. 4. Low-grade medial ankle ligament sprain. 5. Low-grade sprain involving anterior and posterior talofibular ligaments and calcaneofibular ligament. Low to moderate grade sprain/intrasubstance partial-thickness tear involving anterior tibial fibular ligament. Dictated by: Gilberto Little M.D. on 12/31/2022 at 16:59 Approved by: Gilberto Little M.D. on 12/31/2022 at 17:03
== END ==
PROVIDERS: PCP Nurse Practitioner; Referring Provider Podiatrist Foot & Ankle Surgery; Visit Provider Podiatrist Foot & Ankle Surgery
DX: S93.431A Sprain of tibiofibular ligament of right ankle, initial encounter (principal); S93.411A Sprain of calcaneofibular ligament of right ankle, initial encounter; M19.071 Primary osteoarthritis, right ankle and foot; S93.491A Sprain of other ligament of right ankle, initial encounter; M65.871 Other synovitis and tenosynovitis, right ankle and foot; M77.31 Calcaneal spur, right foot; M25.571 Pain in right ankle and joints of right foot; M25.871 Other specified joint disorders, right ankle and foot; M79.671 Pain in right foot; G89.29 Other chronic pain
CPT/HCPCS: 73721